=== PATIENT | female | born 1955 | race African-American/Black ===

== ENCOUNTER 2016-08-01 09:28 | Emergency (ER) | payer OTHER ==
[~2016-08-01] VITALS: Ht 175.3 cm; Wt 81.6 kg
[~2016-08-01 09:28] MED LIST: NORVASC10 MG PO; PERCOCET 5-3251 EACH PO; WELLBUTRIN XL150 MG PO
[2016-08-01 10:23] VITALS: BP 171/90
[2016-08-01 10:24] VITALS: BP 149/67
--- NOTE | 2016-08-01 13:20 | Emergency Room Report ---
History of Present Illness General Chief Complaint: Hypertension Source: Patient Present Illness HPI 61-year-old female presents ED for evaluation. Patient states she checked her blood pressure this morning and was very high. She checked it once again it remains high. Patient took her blood pressure medication this morning. In triage blood pressure was 149/67. Patient states she felt initially dizzy but feels better now. Denies any dizziness, denies any headache. Denies any chest pain or shortness of breath. Patient has history of hypertension and takes Norvasc. States she is not typically compliant with the medication and off and takes it at different times of the day. PMD is Dr. Michael; no other aggravating or relieving factors. Denies any other associated symptoms Allergies: Coded Allergies: NO KNOWN ALLERGIES (Unverified Allergy, Unknown, 01/19/15) Patient History Past Medical History: HTN Pertinent Family History: none Social History: Denies: alcohol use, drug use, smoking Now: No Immunizations: UTD Reviewed Nursing Documentation: PMH: Agreed, PSxH: Agreed Nursing Documentation-PMH Past Medical History: No History, Except For Hx Hypertension: Yes Hx Gastrointestinal Problems: Yes - Hepatitic C Hx Neurological Problems: Yes - fibromyoalagia Review of Systems All Other Systems: negative except mentioned in HPI Physical Exam Vital Signs Date Time Temp Pulse Resp B/P Pulse Ox O2 Delivery O2 Flow Rate FiO2 08/01/16 09:33 98.1 74 16 149/67 97 Room Air Sp02 EP Interpretation: reviewed, normal General Appearance: no apparent distress, alert, GCS 15, non-toxic Head: normocephalic, atraumatic Eyes: bilateral eye PERRL, bilateral eye normal inspection ENT: hearing grossly normal, normal pharynx, no angioedema, normal voice Neck: full range of motion, supple/symm/no masses Respiratory: chest non-tender, lungs clear, normal breath sounds, speaking full sentences Cardiovascular #1: regular rate, rhythm, no edema Cardiovascular #2: 2+ carotid (R), 2+ carotid (L), 2+ radial (R), 2+ radial (L) , 2+ dorsalis pedis (R), 2+ dorsalis pedis (L) Gastrointestinal: normal bowel sounds, non tender, soft, non-distended, no guarding, no rebound Rectal: deferred Genitourinary: normal inspection, no CVA tenderness Musculoskeletal: back normal, gait/station normal, normal range of motion, non- tender Neurologic: alert, oriented x3, responsive, motor strength/tone normal, sensory intact, speech normal Psychiatric: judgement/insight normal, memory normal, mood/affect normal, no suicidal/homicidal ideation Reflexes: 3+ bicep (R), 3+ bicep (L), 3+ tricep (R), 3+ tricep (L), 3+ knee (R) , 3+ knee (L) Skin: normal color, no rash, warm/dry, well hydrated Lymphatic: no adenopathy Medical Decision Making Diagnostic Impression: Primary Impression: Hypertension Qualified Codes: I10 - Essential (primary) hypertension ER Course Hospital Course 61-year-old female presents to ED with high blood pressure, initially dizzy. Now improved after taking blood pressure medication Differential diagnoses include: hypertensive urgency, hypertensive emergency, arrythmia, HI/ACS Clinical course Patient placed on stretcher. After initial history and physical I repeated blood pressure it was 149/67 Patient states she feels better and wishes to be discharged. Does not want further workup at this time I explained to the patient that the blood pressure medication needs to be taken at the same time every day in order to work properly. I. I feel this is a highly complex case requiring extensive working including EKG/Rhythm strip, Xray/CT/US, Blood/urine lab work, repeat exams while in ED, and administration of strong opiates/narcotics for pain control, admission to hospital or close patient follow up. Diagnosis - hypertension Stable and discharged to home. Take medication as directed. Instructed to followup with PMD. Return to ED if symptoms recur or worsen Last Vital Signs Date Time Temp Pulse Resp B/P Pulse Ox O2 Delivery O2 Flow Rate FiO2 08/01/16 10:24 98.1 16 149/67 97 Room Air 08/01/16 10:23 75 Status: improved Disposition: HOME, SELF-CARE Condition: Stable Referrals: NON PHYSICIAN (PCP) Patient Instructions: Hypertension, [id number] LIZZETTE ANDERSON M.D. August 01, 2016 13:20
== END 2016-08-01 10:25 | disposition home or self-care (01) ==
LOC: EMR 09:57
DX: I10 Essential (primary) hypertension (principal); Z86.19 Personal history of other infectious and parasitic diseases; M79.7 Fibromyalgia
CPT/HCPCS: 99282